=== PATIENT | female | born 1995 | race Caucasian/White ===

== ENCOUNTER → 2019-03-26 | Outpatient (CLI) | payer BC ==
--- NOTE | 2019-03-26 15:01 | CT ---
DATE OF EXAM: 03/26/2019 COMPARISON: None HISTORY: Displaced bimalleolar fracture CT DLP: 337 mGycm Automated exposure control for dose reduction was used. TECHNIQUE: Axial images 3 mm thick sections. Reconstructed images in the coronal and sagittal plane. FINDINGS: Soft tissue edema is evident. There is an oblique fracture of the distal metadiaphyseal fibula. Mild diastases is present. Some min imal posterior displacement is evident. There is a medial malleolar fracture with mild diastases of t he anterior portion of the fracture line. This has some medial displacement. Note is made of the extr pratima subtle posterior tibial chip fracture of the cortex. This technically makes this a trimalleolar fracture. The talus is laterally displaced in relation to the tibia. This is estimated at 0.5 cm lateral displa cement. No additional fractures are identified within the [id number]. IMPRESSION: 1. LATERAL SUBLUXATION OF THE TALUS IN RELATION TO THE TIBIA APPROXIMATELY 0.5 CM. 2. MEDIAL MALLEOLAR FRACTURE WITH EXTENSION INTO THE METAPHYSIS OF THE ENTIRE LATERAL DISTAL TIBIA AN D OBLIQUE FRACTURE OF THE DISTAL METAPHYSEAL FIBULA. THESE DISTAL FRACTURE FRAGMENTS ARE SUBLUXED LAT ERALLY AND APPEAR TO MAINTAIN RELATION WITH THE TALUS. 3. TINY CORTICAL CHIP FROM THE POSTERIOR CORTEX OF THE TIBIA. 4. SOFT TISSUE SWELLING AT THE LEVEL OF THE FRACTURES.
== END | disposition home or self-care (01) ==
LOC: RADCTMAIN 07:33
PROVIDERS: ATTEND Orthopaedic Surgery
DX: S82.51XA Displaced fracture of medial malleolus of right tibia, initial encounter for closed fracture (principal); S82.431A Displaced oblique fracture of shaft of right fibula, initial encounter for closed fracture